=== PATIENT | female | born 1960 | race Caucasian/White ===

== ENCOUNTER 2018-06-10 22:24 | Emergency (ER) | payer BC ==
[2018-06-10 23:16] LABS: Absolute Lymphocytes (CBC) 3.2 K/uL (0.7-4.9); Absolute Monocytes 0.6 K/uL (0.1-1.3); Absolute Neutrophil 4.2 K/uL (1.8-8.0); Basophils % 0.8 % (0-1.3); Eosinophils % 3.5 % (0-4.4); Hematocrit 42.8 % (36.0-45.0); Lymphocytes % 37.8 % (15.3-44.8); MPV 7.6 fL (7.6-11.3); Monocytes % 7.7 % (3.3-12.3); RBC Red Blood Cell Count 4.65 M/uL (3.86-4.86)
[2018-06-10 23:21] LABS: Protime INR 0.96
[2018-06-10] MEDS ORDERED: NITROGLYCERIN 1 GM PKT TD ONE (23:22)
[2018-06-10 23:35] LABS: ALT/SGPT 49 U/L (12-78); AST/SGOT 22 U/L (15-37); Albumin 3.7 g/dL (3.4-5.0); Alkaline Phosphatase 113 U/L (45-117); BUN Blood Urea Nitrogen 14 mg/dL (7-18); Bicarbonate 25 mmol/L (21-32); Bilirubin Direct 0.1 mg/dL (0-0.2); Bilirubin Total 0.3 mg/dL (0.2-1.0); Glucose Level 115 mg/dL (74-106); Magnesium 2.4 mg/dL (1.8-2.4); NT PRO-BNP 35 pg/mL (<125); Potassium 3.9 mmol/L (3.5-5.1); Protein, Total 7.3 g/dL (6.4-8.2); Sodium Level 143 mmol/L (136-145); Troponin (Emerg Dept Use Only) < 0.02 ng/mL (0.0-0.045)
--- NOTE | 2018-06-11 03:17 | ER ---
Nurse's Notes [facility] Name: Mila Stevenson Age: 58 yrs Sex: Female : 1960 Arrival Date: 06/10/2018 Time: 22:26 Bed 16 Private MD: Diagnosis: Other chest pain;Chest pain, unspecified Presentation: 06/10 22:27 Presenting complaint: Patient states: I have been having chest pain for the past hour jb4 that comes and goes, It radiates to my right arm and back, and I am having nausea. 22:27 Transition of care: patient was not received from another setting of care. Onset of jb4 symptoms was June 10, 2018. Risk Assessment: Do you want to hurt yourself or someone else? Patient reports no desire to harm self or others. Initial Sepsis Screen: Does the patient meet any 2 criteria? No. Patient's initial sepsis screen is negative. Does the patient have a suspected source of infection? No. Patient's initial sepsis screen is negative. Care prior to arrival: None. 22:27 Method Of Arrival: Wheelchair jb4 22:27 Acuity: MARIS 3 jb4 Historical: - Allergies: 22:27 No Known Allergies; jb4 - Home Meds: 22:27 None [Active]; jb4 - PMHx: 22:27 None; jb4 - PSHx: 22:27 None; jb4 - Immunization history:: Adult Immunizations up to date, Flu vaccine is up to date. - Social history:: Smoking status: Patient/guardian denies using tobacco, Patient/guardian denies using alcohol. - Ebola Screening: : No symptoms or risks identified at this time. Screenin:27 Abuse screen: Denies threats or abuse. Nutritional screening: No deficits noted. jb4 Tuberculosis screening: No symptoms or risk factors identified. Fall Risk None identified. Assessment: 22:27 General: Appears uncomfortable, Behavior is calm, cooperative, appropriate for age. jb4 Pain: Complains of pain in chest Pain radiates to back and right arm Pain currently is 7 out of 10 on a pain scale. Quality of pain is described as pressure, Pain began 1 hour ago. Is intermittent. Neuro: Level of Consciousness is awake, alert, obeys commands, Oriented to person, place, time, situation. Cardiovascular: Heart tones S1 S2 present Patient's skin is warm and dry. Respiratory: Airway is patent Respiratory effort is even, unlabored, Respiratory pattern is regular, symmetrical, Breath sounds are clear bilaterally. GI: Reports nausea. : No signs and/or symptoms were reported regarding the genitourinary system. EENT: No signs and/or symptoms were reported regarding the EENT system. Derm: Skin is intact, Skin is pink, warm \T\ dry. Musculoskeletal: Circulation, motion, and sensation intact. Swelling present in right hand, left hand, right leg and left leg. 23:30 Reassessment: Patient appears in no apparent distress at this time. Patient and/or jb4 family updated on plan of care and expected duration. Pain level reassessed. Patient is alert, oriented x 3, equal unlabored respirations, skin warm/dry/pink. Patient states feeling better. 06/11 00:30 Reassessment: Patient appears in no apparent distress at this time. Patient and/or jb4 family updated on plan of care and expected duration. Pain level reassessed. Patient is alert, oriented x 3, equal unlabored respirations, skin warm/dry/pink. Patient states feeling better. 01:30 Reassessment: Patient appears in no apparent distress at this time. Patient and/or jb4 family updated on plan of care and expected duration. Pain level reassessed. Patient is alert, oriented x 3, equal unlabored respirations, skin warm/dry/pink. 02:30 Reassessment: Patient appears in no apparent distress at this time. Patient and/or jb4 family updated on plan of care and expected duration. Pain level reassessed. Patient is alert, oriented x 3, equal unlabored respirations, skin warm/dry/pink. 03:20 Reassessment: Patient appears in no apparent distress at this time. Patient and/or jb4 family updated on plan of care and expected duration. Pain level reassessed. Patient is alert, oriented x 3, equal unlabored respirations, skin warm/dry/pink. Vital Signs: 06/10 22:27 BP 157 / 87; Pulse 73; Resp 17; Temp 97.5(O); Pulse Ox 97% on R/A; Weight 102.06 kg jb4 (R); Height 5 ft. 3 in. (160.02 cm) (R); Pain 7/10; 23:30 BP 127 / 95; Pulse 71; Resp 16; Pulse Ox 96% on R/A; jb4 06/11 01:00 BP 128 / 75; Pulse 78; Resp 13; Pulse Ox 94% on R/A; jb4 02:00 BP 133 / 81; Pulse 71; Resp 16; Pulse Ox 98% on R/A; jb4 02:30 BP 127 / 83; Pulse 75; Resp 16; Pulse Ox 97% on R/A; jb4 06/10 22:27 Body Mass Index 39.86 (102.06 kg, 160.02 cm) jb4 ED Course: 06/10 22:26 Patient arrived in ED. mr 22:27 Arm band placed on left wrist. jb4 22:27 Patient has correct armband on for positive identification. Bed in low position. Call jb light in reach. Side rails up X 1. personnel monitor on. Pulse ox on. NIBP on. 22:27 Initial lab(s) drawn, by pr, sent to lab. Inserted saline lock: in left hand, using 4 aseptic technique. Blood collected. Missed attempt(s): 20 gauge in left forearm. Patient maintains SpO2 saturation greater than 95% on room air. 22:28 Chuck Solis, RN is Primary Nurse. jb4 22:28 Zoltan Platt MD is Attending Physician. tw4 22:47 Triage completed. jb4 23:01 XRAY Chest (1 view) In Process Unspecified. [facility] 06/11 03:17 Wilmer Lewis MD is Referral Physician. tw4 03:20 No provider procedures requiring assistance completed. IV discontinued, intact, jb4 bleeding controlled. Administered Medications: 06/10 23:16 Drug: Nitro-Bid Ointment 2 % 0.5 inches Route: Transdermal; Site: anterior chest wall; jb4 06/11 00:00 Follow up: Response: No adverse reaction; Marked relief of symptoms jb4 Outcome: 03:17 Discharge ordered by . tw4 03:20 Discharged to home ambulatory, with family. jb4 03:20 Condition: stable 03:20 Discharge instructions given to patient, family, Instructed on discharge instructions, follow up and referral plans. medication usage, Demonstrated understanding of instructions, follow-up care, medications, Prescriptions given X 1. 03:45 Patient left the ED. jb4 Signatures: Dispatcher [employer] [facility] MedinaAmie coery James, RN RN jb4 Zoltan Platt MD MD tw4 Corrections: (The following items were deleted from the chart) 00:03 06/10 22:27 Pulse ox on. NIBP on. jb4 jb4 06/11 00:12 06/10 22:27 Musculoskeletal: Circulation, motion, and sensation intact. jb4 jb4
--- NOTE | 2018-06-11 03:17 | EDPHYS ---
Physician Documentation [facility] Name: Mila Stevenson Age: 58 yrs Sex: Female : 1960 Arrival Date: 06/10/2018 Time: 22:26 Bed 16 Private MD: ED Physician Zoltan Platt HPI: 06/10 22:45 This 58 yrs old Female presents to ER via Unassigned with complaints of Chest tw4 Tightness, Arm Pain, Nausea. 22:45 The patient or guardian reports chest pain that is located primarily in the anterior tw4 chest wall, right. Onset: today. The pain does not radiate. Associated signs and symptoms: The patient has no apparent associated signs or symptoms. The chest pain is described as dull. Duration: The patient or guardian reports a single episode. Modifying factors: The symptoms are alleviated by nothing. the symptoms are aggravated by nothing. Severity of pain: At its worst the pain was moderate in the emergency department the pain is unchanged. Historical: - Allergies: 22:27 No Known Allergies; jb4 - Home Meds: 22:27 None [Active]; jb4 - PMHx: 22:27 None; jb4 - PSHx: 22:27 None; jb4 - Immunization history:: Adult Immunizations up to date, Flu vaccine is up to date. - Social history:: Smoking status: Patient/guardian denies using tobacco, Patient/guardian denies using alcohol. - Ebola Screening: : No symptoms or risks identified at this time. ROS: 22:45 Constitutional: Negative for fever, chills, and weight loss, Eyes: Negative for injury, tw4 pain, redness, and discharge, Respiratory: Negative for shortness of breath, cough, wheezing, and pleuritic chest pain, Abdomen/GI: Negative for abdominal pain, nausea, vomiting, diarrhea, and constipation, Back: Negative for injury and pain, MS/Extremity: Negative for injury and deformity, Skin: Negative for injury, rash, and discoloration. 22:45 Cardiovascular: Positive for chest pain, Negative for edema, orthopnea, palpitations. Exam: 22:52 Constitutional: This is a well developed, well nourished patient who is awake, alert, tw4 and in no acute distress. Head/Face: Normocephalic, atraumatic. Eyes: Pupils equal round and reactive to light, extra-ocular motions intact. Lids and lashes normal. Conjunctiva and sclera are non-icteric and not injected. Cornea within normal limits. Periorbital areas with no swelling, redness, or edema. Chest/axilla: Normal chest wall appearance and motion. Nontender with no deformity. No lesions are appreciated. Cardiovascular: Regular rate and rhythm with a normal S1 and S2. No gallops, murmurs, or rubs. Normal PMI, no JVD. No pulse deficits. Respiratory: Lungs have equal breath sounds bilaterally, clear to auscultation and percussion. No rales, rhonchi or wheezes noted. No increased work of breathing, no retractions or nasal flaring. Abdomen/GI: Soft, non-tender, with normal bowel sounds. No distension or tympany. No guarding or rebound. No evidence of tenderness throughout. MS/ Extremity: Pulses equal, no cyanosis. Neurovascular intact. Full, normal range of motion. Neuro: Awake and alert, GCS 15, oriented to person, place, time, and situation. Cranial nerves II-XII grossly intact. Motor strength 5/5 in all extremities. Sensory grossly intact. Cerebellar exam normal. Normal gait. Vital Signs: 22:27 BP 157 / 87; Pulse 73; Resp 17; Temp 97.5(O); Pulse Ox 97% on R/A; Weight 102.06 kg 4 (R); Height 5 ft. 3 in. (160.02 cm) (R); Pain 7/10; 23:30 BP 127 / 95; Pulse 71; Resp 16; Pulse Ox 96% on R/A; jb4 06/11 01:00 BP 128 / 75; Pulse 78; Resp 13; Pulse Ox 94% on R/A; jb4 02:00 BP 133 / 81; Pulse 71; Resp 16; Pulse Ox 98% on R/A; jb4 02:30 BP 127 / 83; Pulse 75; Resp 16; Pulse Ox 97% on R/A; jb4 06/10 22:27 Body Mass Index 39.86 (102.06 kg, 160.02 cm) 4 MDM: 06/10 22:28 Patient medically screened. tw4 06/11 06:36 Differential diagnosis: acute myocardial infarction, acute pericarditis, cholecystitis, tw4 Cholelithiasis herpes zoster, hiatal hernia, pulmonary embolus, stable angina, thoracic aortic disection. Data reviewed: vital signs, nurses notes. Counseling: I had a detailed discussion with the patient and/or guardian regarding: the historical points, exam findings, and any diagnostic results supporting the discharge/admit diagnosis, lab results, radiology results. Special discussion: I discussed with the patient/guardian in detail that at this point there is no indication for admission to the hospital. It is understood, however, that if the symptoms persist or worsen the patient needs to return immediately for re-evaluation. 06:38 HEART Score: History: Slightly Suspicious (0), ECG: Normal (0), Age: > 45 and < 65 tw4 years (1), Risk Factors: No Risk Factors Known (0), Troponin: < or = 1 x Normal Limit (0), Total Score =. ROSEANNA Risk Score: not applicable, the history is not suggestive of an acute cornary syndrome. Data interpreted: night monitor: rhythm is normal sinus rhythm, Pulse oximetry: Interpretation: normal. Test interpretation: by ED physician or midlevel provider: ECG, plain radiologic studies. ED course: Pt had two sets of negative enzymes and CP was atypical. Pt told to return to ED if symptoms worsen. 06/10 22:32 Order name: Basic Metabolic Panel 06/10 22:32 Order name: CBC with Diff; Complete Time: 03:10 06/10 22:32 Order name: LFT's; Complete Time: 03:08 06/10 22:32 Order name: Magnesium 06/10 22:32 Order name: NT PRO-BNP 06/10 22:32 Order name: PT-INR 06/10 22:32 Order name: Troponin (emerg Dept Use Only) 06/10 22:32 Order name: XRAY Chest (1 view) 06/10 22:32 Order name: EKG; Complete Time: 22:32 06/10 22:32 Order name: Cardiac monitoring; Complete Time: 22:44 06/10 22:32 Order name: EKG - Nurse/Tech; Complete Time: 22:44 06/11 02:16 Order name: Troponin (emerg Dept Use Only) [facility] 06/11 02:16 Order name: Troponin (Emerg Dept Use Only) [facility] 06/10 22:32 Order name: IV Saline Lock; Complete Time: 23:07 tw4 06/10 22:32 Order name: Labs collected and sent; Complete Time: 23:07 tw4 06/10 22:32 Order name: O2 Per Protocol; Complete Time: 22:44 tw4 06/10 22:32 Order name: O2 Sat Monitoring; Complete Time: 22:44 tw4 EC:37 Rhythm is regular, Normal Sinus Rhythm. QRS [place] is Normal. NH interval is normal. QRS tw4 interval is normal. QT interval is normal. No Q waves. T waves are Normal. No ST changes noted. Clinical impression: Normal ECG. Interpreted by me. Reviewed by me. Administered Medications: 06/10 23:16 Drug: Nitro-Bid Ointment 2 % 0.5 inches Route: Transdermal; Site: anterior chest wall; jb4 06/11 00:00 Follow up: Response: No adverse reaction; Marked relief of symptoms jb4 Disposition: 06/11/18 03:17 Discharged to Home. Impression: Other chest pain, Chest pain, unspecified. - Condition is Stable. - Discharge Instructions: Nonspecific Chest Pain, Pain Without a Known Cause, Nonspecific Chest Pain, Mhit-ey-Nala. - Prescriptions for Ibuprofen 600 mg Oral Tablet - take 1 tablet by ORAL route every 6 hours As needed take with food; 30 tablet. - Medication Reconciliation Form, Thank You Letter, Antibiotic Education, Prescription Opioid Use form. - Follow up: Private Physician; When: Upon discharge from the Emergency Department; Reason: If symptoms return, Recheck today's complaints, Continuance of care. Follow up: Wilmer Lewis MD; When: Upon discharge from the Emergency Department; Reason: If symptoms return, Recheck today's complaints, Continuance of care. - Problem is new. - Symptoms have improved. Signatures: Dispatcher [employer] [facility] Chuck Solis RN RN jb4 Zoltan Platt MD MD tw4 Corrections: (The following items were deleted from the chart) 03:18 03:17 06/11/2018 03:17 Discharged to Home. Impression: Other chest pain; Chest pain, tw4 unspecified. Condition is Stable. Forms are Medication Reconciliation Form, Thank You Letter, Antibiotic Education, Prescription Opioid Use. Follow up: Private Physician; When: Upon discharge from the Emergency Department; Reason: If symptoms return, Recheck today's complaints, Continuance of care. Problem is new. Symptoms have improved. tw4 03:45 03:18 06/11/2018 03:17 Discharged to Home. Impression: Other chest pain; Chest pain, jb4 unspecified. Condition is Stable. Discharge Instructions: Nonspecific Chest Pain, Pain Without a Known Cause, Nonspecific Chest Pain, [id number]. Prescriptions for Ibuprofen 600 mg Oral Tablet - take 1 tablet by ORAL route every 6 hours As needed take with food; 30 tablet. and Forms are Medication Reconciliation Form, Thank You Letter, Antibiotic Education, Prescription Opioid Use. Follow up: Private Physician; When: Upon discharge from the Emergency Department; Reason: If symptoms return, Recheck today's complaints, Continuance of care. Follow up: Wilmer Lewis; When: Upon discharge from the Emergency Department; Reason: If symptoms return, Recheck today's complaints, Continuance of care. Problem is new. Symptoms have improved. tw4
[2018-06-11 03:53] VITALS: TEMP 97.5
[2018-06-11 03:58] VITALS: BP 127/83; O2SAT 97
--- NOTE | 2018-06-11 10:49 | RAD REPORT ---
EXAM DESCRIPTION: RAD - Chest Single View - 06/11/2018 8:19 am CLINICAL HISTORY: CHEST PAIN Chest pain. COMPARISON: Chest Pa And Lat (2 Views) dated 11/27/2015; CHEST PA AND LAT 2 VIEW dated 07/12/2014; CHES T SINGLE VIEW dated 11/22/2013 FINDINGS: Portable technique limits examination quality. The lungs are grossly clear. The heart is upper limit of normal in size. No displaced fractures. IMPRESSION: No acute intrathoracic process suspected.
--- NOTE | 2018-06-11 20:19 | EKG ---
Test Date: 2018-06-10 Test Time: 22:36:24 Metal Neutralizer: NATY MEASUREMENT RESULTS: Intervals: Rate: 69 MS: 162 QRSD: 76 QT: 398 QTc: 426 [place]: P: 33 MS: 162 QRS: -6 T: -14 INTERPRETIVE STATEMENTS: Sinus rhythm with premature atrial complexes with aberrant conduction Nonspecific ST and T wave abnormality Abnormal ECG Compared to ECG 11/23/2013 14:35:22 Atrial premature complex(es) now present Aberrant conduction of supraventricular beat(s) now present ST (T wave) deviation now present Sinus arrhythmia no longer present Left ventricular hypertrophy no longer present T-wave abnormality no longer present Electronically Signed On 06-11-18 20:18:22 CDT by Wilmer Lewis
== END 2018-06-11 03:45 | disposition home or self-care (01) ==
LOC: ER 22:24
DX: R07.9 Chest pain, unspecified (principal)
CPT/HCPCS: 36415; 71045; 80048; 80076; 83735; 83880; 84484; 85025; 85610; 93005; 99285